=== PATIENT | female | born 1940 | race Caucasian/White ===

== ENCOUNTER 2023-01-17 13:50 | Emergency (ER) | payer OTHER ==
[2023-01-17 14:07] VITALS: BP 186/78; PULSE 80; RESP 18; TEMP 98.8; BMI 20.6
[2023-01-17] MEDS ORDERED: ACETAMINOPHEN 500 MG TABLET (FP) PO ONE (14:51)
[2023-01-17] MEDS ORDERED: ACETAMINOPHEN 500 MG TABLET (FP) ONE (15:03)
== END 2023-01-17 15:10 | disposition home or self-care (01) ==
LOC: FER 13:50
DX: M79.604 Pain in right leg (principal)
CPT/HCPCS: 99282-25